=== PATIENT | female | born 1960 | race Caucasian/White ===

== ENCOUNTER 2018-11-09 16:16 | Inpatient (IN) | payer OTHER ==
--- NOTE | 2018-11-09 16:32 | EDPHY ---
H & P Stated Complaint: developed chset pain and headache status post nasal debridment Time Seen by Provider: 11/09/18 16:31 HPI/ROS: CHIEF COMPLAINT: Chest pain following nasal debridement in the ENT office HISTORY OF PRESENT ILLNESS: The patient was undergoing a mild nasal debridement in the ENT office. She did received some nasal anesthetic. She tolerated the procedure well was discharged home. Shortly after leaving the office she developed chest pain, headache and dizziness. She return to the office. Her headache resolved however she continued to have anterior chest pain and dizziness which prompted her visit to the emergency department today. The patient denies any focal numbness or weakness. She has no history of cardiac disease. She has been on Suprax for the past 7 weeks secondary to her sinus infection. The patient does take propranolol for tremors. She denies any asymmetric calf pain or swelling. She denies pleuritic chest pain. REVIEW OF SYSTEMS: A comprehensive 10 point review of systems is otherwise negative aside from elements mentioned in the history of present illness. Source: Patient Exam Limitations: No limitations - Personal History Current Tetanus Diphtheria and Acellular Pertussis (TDAP): Yes - Medical/Surgical History Hx Asthma: Yes Hx Chronic Respiratory Disease: No Hx Diabetes: No Hx Cardiac Disease: No Hx Renal Disease: No Hx Cirrhosis: No Hx Alcoholism: No Hx HIV/AIDS: No Hx Splenectomy or Spleen Trauma: No Other PMH: hypothyroid, raynauds, tremors, Chronic sinusitis - Social History Smoking Status: Never smoked - Physical Exam Exam: General Appearance: Alert, no distress Eyes: Pupils equal and round no pallor or injection ENT, Mouth: Mucous membranes moist Respiratory: There are no retractions, lungs are clear to auscultation Cardiovascular: Regular rate and rhythm Gastrointestinal: Abdomen is soft and nontender, no masses, bowel sounds normal Neurological: A&O, normal motor function, normal sensory exam, normal cranial nerves Skin: Warm and dry, no rashes Musculoskeletal: Neck is supple nontender Extremities: symmetrical, full range of motion Constitutional: Initial Vital Signs Heart Rate 57 L 11/09/18 16:18 Respiratory Rate 16 11/09/18 16:18 Blood Pressure 142/77 H 11/09/18 16:18 O2 Sat (%) 100 11/09/18 16:18 O2 Delivery Mode Room Air Allergies/Adverse Reactions: alcohol Allergy (Verified 11/09/18 16:22) Home Medications: Medication Instructions Recorded Levothyroxine 11/09/18 Propranolol HCl 11/09/18 Suprax 11/09/18 Medical Decision Making - Diagnostics EKG Interpretation: EKG: Complete interpretation has been separately recorded in the [employer] archive. Summary impression: Sinus rhythm, rate 50, no ischemic changes or arrhythmia noted Repeat EKG in the setting of positive troponin performed at 7:00 p.m. EKG: Complete interpretation has been separately recorded in the [employer] archive. Summary impression: Sinus rhythm, no evidence of ischemia Imaging Results: Chest x-ray AP: Images reviewed by myself and discussed with radiologist Dr. Garcia. Impression negative for acute disease. ED Course/Re-evaluation: Patient presents to the ED with lightheadedness and chest pain following a simple office base procedure in the ENT office. The patient is neurologically intact upon arrival. She has no complaints of significant headache currently. Her initial EKG demonstrates no evidence of ischemia. Patient is noted to have an indeterminately elevated troponin of 0.28. I re- evaluated the patient at 5:45 p.m. and she is chest pain-free. Patient's troponin was rechecked at 7:00 p.m. and found to be positive at 5.1. Repeat EKG was ordered. The patient continues to have no symptoms. Discussion: The patient presents the ED after an episode of chest pain and headache which began some time after receiving fell Afrin at the ENT physician' s office. The patient has no risk factors for coronary artery disease. The patient did receive an aspirin in the emergency department.. Consultation was made with Dr. Ríos from Cardiology who reviewed the patient's EKGs. Working diagnosis at this point time is likely vaso spasm from phenylephrine. The patient will be given 1 milligram/kilogram of Lovenox. The patient will be admitted to the hospital. She should be NPO after midnight in anticipation of cardiac catheterization tomorrow. Consultation is made with Dr. Menendez from the hospitalist service who will admit the patient this evening. Differential Diagnosis: Differential diagnosis considered includes acute coronary syndrome, myocardial infarction, pericarditis, arrhythmia Critical Care Time: Critical care time exclusive of procedures and exclusive of the PA's time was 35 minutes, performed by myself, Pedro Chambers MD. Patient presents to the ED after an episode of fairly severe chest pain after a fentanyl Afrin nasal infusion. The patient was noted to rule in for myocardial infarction with a troponin of 5 at 7:00 p.m.. The patient was started on Lovenox. I consulted with Cardiology. The patient will be admitted to the hospital this evening in anticipation of cardiac catheterization in the morning. - Data Points Laboratory Results: Laboratory Results 11/09/18 16:40 11/09/18 16:40 11/09/18 11/09/18 11/09/18 19:04 17:24 16:40 WBC RBC Hgb Hct MCV MCH MCHC RDW Plt Count MPV Neut % (Auto) Lymph % (Auto) [place] % (Auto) Eos % (Auto) Baso % (Auto) Nucleat RBC Rel Count Absolute Neuts (auto) Absolute Lymphs (auto) Absolute Monos (auto) Absolute Eos (auto) Absolute Basos (auto) Absolute Nucleated RBC Immature Gran % Immature Gran # Sodium 137 mEq/L mEq/L (135-145) Potassium 3.8 mEq/L mEq/L (3.5-5.2) Chloride 101 mEq/L mEq/L (97-110) Carbon Dioxide 25 mEq/l mEq/l (22-31) Anion Gap 11 mEq/L mEq/L (6-14) BUN 25 mg/dL H mg/dL (7-23) Creatinine 0.9 mg/dL mg/dL (0.6-1.0) Estimated GFR > 60 Glucose 126 mg/dL H mg/dL (70-100) Calcium 10.4 mg/dL mg/dL (8.5-10.4) POC Troponin I 5.10 ng/mL H ng/mL 0.28 ng/mL H ng/mL (0.00-0.08) (0.00-0.08) 11/09/18 16:40 WBC 6.22 10^3/uL 10^3/uL (3.80-9.50) RBC 4.50 10^6/uL 10^6/uL (4.18-5.33) Hgb 14.3 g/dL g/dL (12.6-16.3) Hct 43.2 % % (38.0-47.0) MCV 96.0 fL fL (81.5-99.8) MCH 31.8 pg pg (27.9-34.1) MCHC 33.1 g/dL g/dL (32.4-36.7) RDW 13.1 % % (11.5-15.2) Plt Count 240 10^3/uL 10^3/uL (150-400) MPV 9.3 fL fL (8.7-11.7) Neut % (Auto) 51.4 % % (39.3-74.2) Lymph % (Auto) 34.4 % % (15.0-45.0) [place] % (Auto) 10.9 % % (4.5-13.0) Eos % (Auto) 2.6 % % (0.6-7.6) Baso % (Auto) 0.5 % % (0.3-1.7) Nucleat RBC Rel Count 0.0 % % (0.0-0.2) Absolute Neuts (auto) 3.20 10^3/uL 10^3/uL (1.70-6.50) Absolute Lymphs (auto) 2.14 10^3/uL 10^3/uL (1.00-3.00) Absolute Monos (auto) 0.68 10^3/uL 10^3/uL (0.30-0.80) Absolute Eos (auto) 0.16 10^3/uL 10^3/uL (0.03-0.40) Absolute Basos (auto) 0.03 10^3/uL 10^3/uL (0.02-0.10) Absolute Nucleated RBC 0.00 10^3/uL 10^3/uL (0-0.01) Immature Gran % 0.2 % % (0.0-1.1) Immature Gran # 0.01 10^3/uL 10^3/uL (0.00-0.10) Sodium Potassium Chloride Carbon Dioxide Anion Gap BUN Creatinine Estimated GFR Glucose Calcium POC Troponin I Medications Given: Discontinued Medications Aspirin (Aspirin) 324 mg PO EDNOW ONE Stop: 11/09/18 17:43 Last Admin: 11/09/18 17:47 Dose: 324 mg Sodium Chloride (Ns) 1,000 mls @ 0 mls/hr IV EDNOW ONE; Wide Open PRN Reason: Protocol Stop: 11/09/18 16:50 Last Admin: 11/09/18 17:09 Dose: 1,000 mls Point of Care Test Results: Chemistry 11/09/18 11/09/18 19:04 17:24 POC Troponin I 5.10 ng/mL H ng/mL 0.28 ng/mL H ng/mL (0.00-0.08) (0.00-0.08) Departure - Departure Disposition: [facility] Inpatient Acute Clinical Impression: NSTEMI (non-ST elevated myocardial infarction) Condition: Fair
[2018-11-09] MEDS ORDERED: NS 1,000 ML IV ONE (16:49)
--- NOTE | 2018-11-09 16:53 | CPEKG ---
Test Reason : OPEN Blood Pressure : / mmHG Vent. Rate : 050 BPM Atrial Rate : 050 BPM P-R Int : 162 ms QRS Dur : 091 ms QT Int : 441 ms P-R-T Axes : 072 031 053 degrees QTc Int : 403 ms Sinus rhythm Confirmed by Pedro Chambers ([id number]) on 11/09/2018 4:52:29 PM Referred By: Pedro Chambers Confirmed By:Pedor Chambers
[2018-11-09 16:56] LABS: PLATELET COUNT 240 10^3/uL (150-400)
[2018-11-09] MEDS ORDERED: ASPIRIN 81 MG CHEWABLE TAB PO ONE (17:42)
[2018-11-09] MEDS ORDERED: ENOXAPARIN 60 MG/0.6 ML SYR SC ONE (19:35)
--- NOTE | 2018-11-09 19:38 | CPEKG ---
Test Reason : OPEN Blood Pressure : / mmHG Vent. Rate : 085 BPM Atrial Rate : 084 BPM P-R Int : 161 ms QRS Dur : 092 ms QT Int : 388 ms P-R-T Axes : 074 034 054 degrees QTc Int : 462 ms Sinus rhythm Confirmed by Pedro Chambers ([id number]) on 11/09/2018 7:37:24 PM Referred By: Pedro Chambers Confirmed By:Pedro Chambers
[2018-11-09] MEDS ORDERED: ONDANSETRON 4 MG/2 ML VIAL IVP PRN (20:45)
[2018-11-09] MEDS ORDERED: CEFIXIME 400 MG PO SCH (20:45)
[2018-11-09] MEDS ORDERED: ONDANSETRON DISINTEGRATING 4 MG TAB PO PRN (20:45)
[2018-11-09] MEDS ORDERED: ACETAMINOPHEN 325 MG TAB PO PRN (20:45)
--- NOTE | 2018-11-09 21:06 | PDGENHP ---
History and Physical - Chief Complaint Chest pain - History of Present Illness 57 y/o female presents to the ED w/c/o severe RODRIGUEZ, anterior sternal CP and dizziness s/p a nasal procedure that was performed today by Dr. Choi's office. She has a hx of complicated chronic maxillary sinusitis w/right maxillary abscess that she ended up having surgery (maxillary antrostomy) on last year; had improvement until recently where the sinus pressures started to build up; followed by [facility] and has been on Suprax (and has been on for 7 weeks), had a nasal endoscopy performed in September 2018 w/use of lidocaine/phenylephrine - no signs of infection. Today was a f/u appt to which nasal medications were used and she reports Dr. Choi nasally "suctioned junk" out. Afterwards, she felt fine and left. However, soon after leaving she experienced a severe RODRIGUEZ and drove herself to the office where she developed anterior sternal CP and dizziness. No cardiac hx. Since that time, she is asymptomatic however does have elevated troponins of 0.28 and 5.10, NSR on EKG. She is being admitted for further work-up, treatment and monitoring. History Information - Allergies/Home Medication List Allergies/Adverse Reactions: alcohol Allergy (Verified 11/09/18 16:22) Home Medications: Cefixime [Suprax] 400 mg PO DAILY 11/09/18 [Last Taken 11/08/18] Levothyroxine [Synthroid 88 mcg (*)] 88 mcg PO DAILY06 11/09/18 [Last Taken ] Propranolol HCl [Propranolol HCl ER] 60 mg PO DAILY 11/09/18 [Last Taken ] I have personally reviewed and updated: family history, medical history, social history, surgical history Past Medical History: Hypothyroid, Raynauds, Essential tremors, Chronic sinusitis - Surgical History Reports: appendectomy Additional surgical history: Vaginectomy, labral tear should repair, noted nasal procedures in HPI - Family History Positive for: non-pertinent - Social History Smoking Status: Never smoked Alcohol Use: None Drug Use: None 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 Case discussed w/admitting physician, Dr. Guera Menendez. WBC: 6.22 H/H: 14.3/43.2 Plt count: 240 Na: 137 K: 3.8 Cl: 101 Co2: 25 BUN/Cr: 25/0.9 Troponin: 0.28/5.10 CXR: No acute cardiopulmonary processes EKG: NSR Temp Pulse Resp BP Pulse Ox 36.8 C 79 18 115/76 97 11/09/18 20:04 11/09/18 20:04 11/09/18 20:04 11/09/18 20:04 11/09/18 20:04 Constitutional: no apparent distress, appears nourished, not in pain Eyes: PERRL, anicteric sclera, EOMI Ears, Nose, Mouth, Throat: moist mucous membranes, hearing normal, ears appear normal, no oral mucosal ulcers Cardiovascular: regular rate and rhythym, no murmur, rub, or gallop, No edema Peripheral Pulses: 2+: dorsalis-pedis (R), dorsalis-pedis (L) Respiratory: no respiratory distress, no rales or rhonchi, clear to auscultation Gastrointestinal: normoactive bowel sounds, soft, non-tender abdomen, no palpable masses Genitourinary: no bladder fullness, no bladder tenderness Skin: warm, normal color, no rashes or abrasions, no fluctuance, no induration, No mottled Musculoskeletal: full muscle strength, no muscle tenderness, normal joint ROM, no joint effusions Neurologic: AAOx3, sensation intact bilaterally, CN II-XII Intact Psychiatric: interacting appropriately, not anxious, not encephalopathic, thought process linear Lymph, Heme, Immunologic: no cervical LAD, no supraclavicular LAD Lab Data & Imaging Review 11/09/18 16:40 11/09/18 16:40 WBC 6.22 10^3/uL (3.80-9.50) 11/09/18 16:40 RBC 4.50 10^6/uL (4.18-5.33) 11/09/18 16:40 Hgb 14.3 g/dL (12.6-16.3) 11/09/18 16:40 Hct 43.2 % (38.0-47.0) 11/09/18 16:40 MCV 96.0 fL (81.5-99.8) 11/09/18 16:40 MCH 31.8 pg (27.9-34.1) 11/09/18 16:40 MCHC 33.1 g/dL (32.4-36.7) 11/09/18 16:40 RDW 13.1 % (11.5-15.2) 11/09/18 16:40 Plt Count 240 10^3/uL (150-400) 11/09/18 16:40 MPV 9.3 fL (8.7-11.7) 11/09/18 16:40 Neut % (Auto) 51.4 % (39.3-74.2) 11/09/18 16:40 Lymph % (Auto) 34.4 % (15.0-45.0) 11/09/18 16:40 [place] % (Auto) 10.9 % (4.5-13.0) 11/09/18 16:40 Eos % (Auto) 2.6 % (0.6-7.6) 11/09/18 16:40 Baso % (Auto) 0.5 % (0.3-1.7) 11/09/18 16:40 Nucleat RBC Rel Count 0.0 % (0.0-0.2) 11/09/18 16:40 Absolute Neuts (auto) 3.20 10^3/uL (1.70-6.50) 11/09/18 16:40 Absolute Lymphs (auto) 2.14 10^3/uL (1.00-3.00) 11/09/18 16:40 Absolute Monos (auto) 0.68 10^3/uL (0.30-0.80) 11/09/18 16:40 Absolute Eos (auto) 0.16 10^3/uL (0.03-0.40) 11/09/18 16:40 Absolute Basos (auto) 0.03 10^3/uL (0.02-0.10) 11/09/18 16:40 Absolute Nucleated RBC 0.00 10^3/uL (0-0.01) 11/09/18 16:40 Immature Gran % 0.2 % (0.0-1.1) 11/09/18 16:40 Immature Gran # 0.01 10^3/uL (0.00-0.10) 11/09/18 16:40 Sodium 137 mEq/L (135-145) 11/09/18 16:40 Potassium 3.8 mEq/L (3.5-5.2) 11/09/18 16:40 Chloride 101 mEq/L (97-110) 11/09/18 16:40 Carbon Dioxide 25 mEq/l (22-31) 11/09/18 16:40 Anion Gap 11 mEq/L (6-14) 11/09/18 16:40 BUN 25 mg/dL (7-23) H 11/09/18 16:40 Creatinine 0.9 mg/dL (0.6-1.0) 11/09/18 16:40 Estimated GFR > 60 11/09/18 16:40 Glucose 126 mg/dL (70-100) H 11/09/18 16:40 Calcium 10.4 mg/dL (8.5-10.4) 11/09/18 16:40 POC Troponin I 5.10 ng/mL (0.00-0.08) H 11/09/18 19:04 Assessment & Plan Assessment: 57 y/o female w/chronic sinusitis s/p nasal procedure today presents w/acute onset of severe RODRIGUEZ, CP and dizziness. Symptoms since then have resolved. No cardiac hx, no family hx of cardiac. Vital signs are the following: BP 109/64, HR 81, Resp 17, Temp 36.5c, 99% RA #NSTEMI (non-ST elevated myocardial infarction) (Acute) -Cards consulted. Dr. Chambers spoke w/Dr. Ríos; working diagnosis at this point is likely vasospasm from phenylephrine -NPO at midnight tonight in anticipation for cardiac catheterization in AM -Cycle trops Q6H x 2 -Cont tele/PCU monitoring -EKG PRN if symptomatic -Lipid panel/creatinine in AM -Cont BB (used for tremors) -Received Lovenox subq 1mg/kg in ED #Chronic sinusitis -Afebrile, no leukocytosis -Takes Suprax and has for 7 weeks. She does not have medication w/her and it is non-formulary. Will hold giving abx for the time being #Hypothyroidism -Cont L4T Diet: Regular, NPO at midnight tonight VTE ppx: SCDs Code: Full Dispo: Admit to inpatient
[2018-11-10] MEDS: LEVOTHYROXINE 88 MCG TAB PO SCH ×2 (05:24→06:29)
[2018-11-10] MEDS ORDERED: ASPIRIN 81 MG CHEWABLE TAB PO SCH (09:00)
[2018-11-10] MEDS ORDERED: PROPRANOLOL SR 60 MG CAP PO SCH (09:00)
--- NOTE | 2018-11-10 09:18 | PDMN ---
Medical Necessity Medical necessity: Pt meets inpt criteria per MD order and MCG [id number], Myocardial Infarction, 2 days, inpt adm indicated for: myocardial injury due to acute ischemia as indicated by: symptoms consistent with myocardial ischemia- pt presented w/chest pain/dizziness and by elevated troponins x 4. Cardiology consult, will have LHC this AM. 57 y/o s/p nasal procedure snet form ENT's office presenting w/ acute onset of severe RODRIGUEZ, cp, and dizziness, admitted w/ NSTEMI, est LOS>2MN for ongoing eval/management.
--- NOTE | 2018-11-10 09:25 | HOSPPROG ---
Hospitalist Progress Note Assessment/Plan: 57yo F with chronic sinus s/p nasal procedure yesterday p/w acute onset RODRIGUEZ and chest pain found to have elevated troponin. No cardiovascular risk factors. #NSTEMI: Trop peak 5. No ischemic ECG changes. Now CP free. Suspect coronary vasospasm in setting of phenylephrine but prudent to rule out plaque rupture/CAD , dissection. - Cards consulted - TTE pending - ASA 81mg daily - Plan for [facility] today #Chronic sinusitis: Dr Kent wanted patient to continue Suprax for 3 more days. Patient does not tolerate without food so will hold until after procedure. Additionally, this is non-formulary. If patient stays overnight, will ask her to bring in from home. #Hypothyroidism: Continue levothyroxine. Diet: NPO until procedure Code: full Dispo: pending cath Subjective: Chest pain free since arrival. Rare isolated PVC on tele. Objective: Vital Signs Temp Pulse Resp BP Pulse Ox 36.5 C 63 15 96/61 L 94 11/10/18 04:00 11/10/18 04:00 11/10/18 04:00 11/10/18 04:00 11/10/18 04:00 Laboratory Results 11/10/18 07:09 11/09/18 11/10/18 11/11/18 05:59 05:59 05:59 Intake Total 1200 Balance 1200 - Physical Exam Constitutional: no apparent distress, appears nourished, not in pain Eyes: PERRL, anicteric sclera, EOMI Ears, Nose, Mouth, Throat: moist mucous membranes, hearing normal, ears appear normal, no oral mucosal ulcers Cardiovascular: regular rate and rhythym, no murmur, rub, or gallop, No edema Respiratory: no respiratory distress, no rales or rhonchi, clear to auscultation Gastrointestinal: normoactive bowel sounds, soft, non-tender abdomen, no palpable masses Genitourinary: no bladder fullness, no bladder tenderness, no renal bruits Skin: no rashes or abrasions, no fluctuance, no induration Musculoskeletal: full muscle strength, no muscle tenderness, normal joint ROM Neurologic: AAOx3, sensation intact bilaterally Psychiatric: interacting appropriately, not anxious, not encephalopathic, thought process linear ICD10 Worksheet Patient Problems: Problems Problem Status Onset NSTEMI (non-ST elevated myocardial infarction) Acute
[2018-11-10] MEDS ORDERED: LEVOTHYROXINE 50 MCG TAB PO SCH (09:30)
[2018-11-10 10:04] LABS: INR 1.05 (0.83-1.16); PROTIME(PATIENT) 13.3 SEC (12.0-15.0)
--- NOTE | 2018-11-10 10:19 | PDPROPOC ---
Sedation Plan of Care Sedation Plan of Care: vital signs stable, mental status noted, patient educated of risks, benefits, alternatives, patient can tolerate sedation ASA Classification: ASA 2 Planned drugs: fentanyl, midazolam Mallampati Score: Class 2 Mallampati Reference Image: Patient passed 3-3-2 rule?: Yes
--- NOTE | 2018-11-10 10:19 | PDHPUP ---
History & Physical Update H&P update statement: This history and physical update is based on an assessment of the patient which was completed after admission or registration (within 24 hours), but prior to the surgery/procedure. H&P update: H&P reviewed & patient examined, no change in patient's condition since H&P completed
--- NOTE | 2018-11-10 10:56 | GCON ---
[f rep st] CONSULTATION CARDIOLOGY CONSULT DATE OF CONSULTATION: 11/10/2018 CHIEF COMPLAINT: Non ST elevation SC. HISTORY OF PRESENT ILLNESS: We were asked by Dr. Beasley to visit with this patient. 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 She also has no cardiac ri sk factors. Over the past several months, she has had ongoing problems with a chronic right maxillar y sinus infection. She has been on long-term antibiotics and has had a surgery as well as some other ENT procedures. Yesterday, she was at Dr. Kent's office for another sinus procedure. She rece ived intranasal phenylephrine and lidocaine. I am not sure if the lidocaine contained epinephrine. Shortly after leaving the ENT office, she had a severe headache, which caused her to go back to the o ffice. Then she started to experience chest pain, so was sent to the ER. Her headache subsided. He r chest pain lasted for approximately 15 minutes. Her initial troponin was minimally elevated, but t hen a repeat troponin was 5. Her EKG did not show acute ischemic changes. She was admitted for the dimock centert her evaluation and management. Overnight, she has not had recurrent chest pain. She denies any preceding history of chest pain or s hortness of breath. The only time she has ever had palpitations was when she was taking generic levo thyroxine. No history of syncope. No lower extremity edema, paroxysmal nocturnal dyspnea, orthopnea . She exercises regularly without limitation. REVIEW OF SYSTEMS: A full 10-point review of systems is performed. Notable for that which is outline d above. Furthermore, she has had frequent diarrhea related to her chronic antibiotic therapy. The antibiotic is Suprax. Otherwise, a full 10-point review of systems is negative. ALLERGIES: Phenylephrine. Alcohol. PAST MEDICAL HISTORY: 1. Hypothyroidism. 2. Chronic sinusitis. 3. Essential tremor for which she takes daily propranolol. She sees Dr. Austin Morales of Neurology. OUTPATIENT MEDICATIONS: Propranolol ER 60 mg daily, levothyroxine 50 mcg daily, and Suprax 400 mg da jose armando. 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 She has not smoke cigarett es. She is allergic to alcohol and therefore does not drink alcohol. FAMILY HISTORY: Negative for premature coronary disease. PHYSICAL EXAM: VITAL SIGNS: Blood pressure 116/71, heart rate 61, oxygen saturation 95% on room air she is afebrile. TELEMETRY: Sinus rhythm with occasional PVCs. GENERAL: A well-appearing middle-ag ed female in no acute distress. HEENT: Sclerae clear. No jaundice. Mucous membranes are moist. N ormocephalic, atraumatic. She does have very subtle right facial swelling without facial droop. CARDI OVASCULAR: JVP is less than 10. Carotids equal and 2+ bilaterally without bruit. Regular rate and rhythm without murmur, rub or gallop. LUNGS: Clear to auscultation without wheezes, rhonchi, or ral es. ABDOMEN: Soft, nontender, nondistended, without bruits, masses, hepatosplenomegaly. EXTREMITIE S: Warm and well perfused without cyanosis, clubbing, or edema. She is alert. NEURO: Alert, orien felton x3 without gross focal neurologic deficits. Appropriate mood and affect. LABORATORY DATA: CBC is normal. INR 1.05. Basic metabolic panel is normal except for a glucose of 126 and a BUN of 25. Her peak troponin was 5. This morning is 1.9. Total cholesterol 147. LDL 84. EKG x2 reviewed by me shows sinus rhythm without ischemic changes. Chest x-ray reviewed by me: No acute cardiopulmonary process. Echocardiogram is pending. ASSESSMENT AND PLAN: 57-year-old female with no previous cardiac history and no known cardiac risk f actors. She presents with acute chest pain and headache after intranasal phenylephrine. Repeat trop onin is 5. She is now chest pain-free. Etiology is likely coronary vasospasm in the setting of a po tent vasoconstrictor. 1. Non ST elevation myocardial infarction: She is chest pain-free. We will review echocardiogram. Blood pressure is well controlled. She received Lovenox in the ER last night and aspirin therapy as well. I discussed the option of performing coronary angiography. Even though her event was likely caused by coronary vasospasm, I do think it would be prudent to look directly at her coronary arterie s to make sure she does not have a thrombus, coronary atherosclerosis, or dissection. Risks, benefit s, and alternatives were discussed and she agrees to proceed. This will be scheduled for today. 2. Chronic sinusitis: She is on long-term Suprax therapy per ENT. 3. Essential tremor: She will continue her home dose of propanolol which is also appropriate from a cardiac standpoint. Thank you for allowing us to participate in the patient's care. We will follow with you. /[id number]/MODL
--- NOTE | 2018-11-10 11:31 | ECHO ---
[email or web address] [address] Main: [phone] Echocardiography Examination Transthoracic Name: JAMSHID GARCIA MR#: Study Date: 11/10/2018 Study Time: 08:25 AM Date of : 1960 Age: 57 year(s) Height: 160 cm (63 in.) Weight: 65.77 kg (145 lb.) BSA: 1.69 m2 Gender: Female Examination: Echo Contrast: Image Quality: Rhythm: Normal sinus rhythm Heart Rate: 65 bpm BP: 96 mmHg/61 mmHg Indication: Elevated Troponins post procedure Procedure Staff Referring Physician: Ironing Machine Operator: Gamaliel Camp RDCS Reading Physician: Faviola Marquis MD Requesting Provider: Ordering Physician: Guera Menendez Indication: Elevated Troponins post procedure Measurements Chambers AV/MV Label Value Normal Value Label Value Normal Value LVOT Vmax 0.81 m/s (0.7m/s - 1.1m/s) AV PGmax 6 mmHg LVOTd 1.9 cm (1.8cm - 2cm) AV PGmean 3 mmHg LVOT VTI 19.2 cm (18cm - 22cm) AV Vmax 1.18 m/s LVDd, 2D 3.8 cm (3.9cm - 5.3cm) LEIDA (Vmax) 1.9 cm2 LVDs, 2D 2.3 cm (2.1cm - 4cm) LEIDA (VTI) 2 cm2 IVSd, 2D 0.7 cm (0.6cm - 1.1cm) MV E Vmax 0.68 m/s LVPWd, 2D 0.8 cm MV A Vmax 0.77 m/s LVEF, 2D 70 % (54% - 74%) MV E/A 0.88 LVOT PGmean 1 mmHg MV E/E' lateral 7.8 LVOT Vmean 0.52 m/s MV E/E' septal 7.6 (0.5 - 1.7) Additional Vessels MV E' septal 0.09 m/s Label Value Normal Value MV E' lateral 0.09 m/s AoRoot, MM 2.6 cm (2.2cm - 3.7cm) MV E/E' mean 7.56 MV E' mean 0.09 m/s TV/PV Label Value Normal Value RA Pressure 5 mmHg RVSP 25 mmHg TR Pmax 20 mmHg Patient: JAMSHID GARCIA MRN: Study Date: 11/10/2018 Page 1 of 3 08:25 AM TR Vmax 2.23 m/s PV PGmax 2 mmHg PV Vmax, Caliper 0.66 m/s (0.6m/s - 0.9m/s) Conclusions 1. The left ventricle is normal in size and systolic function. Normal wall thickness. No regional wall motion abnormalities. 2. The right ventricle is normal in size and systolic function. 3. There is no significant valvular disease. 4. Estimated PA systolic pressure is normal. 5. No pericardial effusion. 6. No previous echo Findings Left Ventricle: Left ventricle is normal in size. Normal global systolic left ventricular function. Left ventricle wall thickness is normal. There are no regional wall motion abnormalities. Left ventricular diastolic function parameters are normal. IVS: The septum is intact. Right Ventricle: Normal size right ventricle. Right ventricular systolic function is normal. Left Atrium: The left atrium is normal in size. IAS: Normal appearing atrial septum. Right Atrium: The right atrium is normal in size. Mitral Valve: Mitral valve is normal in appearance. Trivial mitral regurgitation. No mitral valve stenosis. Aortic Valve: Aortic leaflets exhibit normal cuspal separation. No aortic valve regurgitation. There is no aortic stenosis. Tricuspid Valve: Tricuspid valve leaflets are normal in appearance and function. Trivial tricuspid regurgitation. No tricuspid valve stenosis. Right Ventricular systolic pressure is measured at 25 mmHg. Pulmonary artery pressure normal. Pulmonic Valve: Pulmonic leaflets exhibit normal cuspal separation. No pulmonic valve regurgitation is evident. There is no pulmonic valve stenosis. Aorta: The aorta is normal. The aortic root size in M-mode measures 2.6 cm. Aorta Measurements AoRoot, MM is 2.6 cm. Pulmonary Artery: The pulmonary artery morphology appears normal. IVC: The inferior vena cava is normal in size and course. Pericardium: No pericardial effusion. No pleural effusion present. Exam Details Procedure Ordered: Echo Patient: JAMSHID GARCIA MRN: Study Date: 11/10/2018 Page 2 of 3 08:25 AM (No Signature Object) Patient: JAMSHID GARCIA MRN: Study Date: 11/10/2018 Page 3 of 3 08:25 AM [id number]
[2018-11-10] MEDS ORDERED: TEMAZEPAM 15 MG CAP PO PRN (12:52)
[2018-11-10] MEDS ORDERED: NITROGLYCERIN 0.4 MG BTL SL PRN (12:52)
[2018-11-10] MEDS ORDERED: NS 1,000 ML IV SCH (13:00)
[2018-11-10] MEDS ORDERED: MIDAZOLAM 2 MG/2 ML VIAL ONE (13:13)
[2018-11-10] MEDS ORDERED: fentaNYL 100 MCG/2 ML INJ ONE (13:13)
[2018-11-10] MEDS ORDERED: LIDOCAINE 1% 300 MG/30 ML SDV ONE (13:13)
[2018-11-10] MEDS ORDERED: IOPAMIDOL (ISOVUE 370) 100 ML BTL IV ONE (13:14)
[2018-11-10] MEDS ORDERED: FAMOTIDINE 20 MG TAB ONE (13:29)
[2018-11-10] MEDS ORDERED: ASPIRIN EC 325 MG TAB PO ONE (13:29)
[2018-11-10] MEDS ORDERED: diphenhydrAMINE 25 MG CAP PO ONE (13:29)
[2018-11-10] MEDS ORDERED: DIAZEPAM 5 MG TAB ONE (13:30)
[2018-11-10] MEDS ORDERED: ATROPINE SULFATE 1 MG/10 ML SYR IVP PRN (14:24)
--- NOTE | 2018-11-10 15:07 | ASMTCMCOM ---
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 Discussed w/RN, reviewed chart. There are no identified case management d/c needs d/t pt age, marital status, employment status and independence with ADL's prior to admission. There are no therapy evals ordered today. Dr. Yepez is PCP. Case Management d/c poc: independent with follow up as directed. Case Management available if needs change. Date Signed: 11/10/2018 03:06 PM Electronically Signed By:Yvonne Muhammad RN
--- NOTE | 2018-11-10 16:11 | PDDCSUM ---
Discharge Summary Discharge Summary: Date of Admission: 11/09/2018 Date of Discharge: 11/10/2018 Consultants: cardiology Procedures: coronary angiography Studies: TTE Discharge Diagnoses: 1. Non-ST elevation MD secondary to coronary vasospasm 2. Chronic sinusitis on chronic antibiotics 3. Essential tremor 4. Hypothyroidism Brief Hospital Course: 57yo F with chronic sinusitis who underwent sinus wash-out at her ENT office on day of admission presented with acute onset headache and chest pain. She received intra-nasal phenylephrine and lidocaine for the procedure and shortly thereafter developed the aforementioned symptoms. She was brought to the ED where her troponin peaked at 5. She did not have any ischemic or dynamic ECG changes. An echocardiogram was normal. Cardiology was consulted and she underwent coronary angiography which was also normal. Her symptoms and elevated troponin were thus attributed to coronary vasospasm in setting of intra-nasal phenylephrine use. I put phenylephrine on her "adverse reaction" medication list. She was started on aspirin 81mg daily and will follow up with cardiology next week. Medications: Please refer to EMR for complete list. Only change was addition of aspirin 81mg daily. Follow Up Plan: Visit with Marla Oleary in 1 week.
--- NOTE | 2018-11-10 16:16 | PDDXCAT ---
Diagnostic Cath Note - . 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 There is no significant disease in the LAD or diagonals. There is no evidence of dissection or atherosclerotic plaque. No thrombus LCX: The left circ as 1 large obtuse marginal branch. There is no coronary disease in the left circumflex or the obtuse marginal RCA: This is a dominant vessel. Normal. EDP: 22 LVEF: Left ventriculography was not performed as the patient had a normal echocardiogram earlier the same day - Findings-Right Heart Catheterization AO: 112/57. No aortic stenosis Complications: None Estimated blood loss: <50ml Closure method: Angioseal Assessment: Angiographically normal coronary arteries. Presumed coronary vasospasm caused by intranasal phenylephrine causing small non ST-elevation MS. Plan: Stable for discharge after bedrest protocol complete. Continue low-dose aspirin Follow-up [facility] in 1 week for groin check Patient Problems: Problems Problem Status Onset NSTEMI (non-ST elevated myocardial infarction) Acute
--- NOTE | 2018-11-10 17:17 | ASDISCHSUM ---
Discharge Information Plan Status:Home with No Needs Medically Cleared to Leave:11/10/2018 Discharge Date:11/10/2018 CM D/C Disposition:Home, Routine, Self-Care ADT D/C Disposition:Home, Routine, Self-Care Projected Discharge Date:11/10/2018 Transportation at D/C:Family Discharge Delay Reason: Follow-Up Date:11/10/2018 Discharge Slot: Final Diagnosis:NSTEMI Placement Information Patient Contact Information Contact Name:ROMAN Relationship:Juliana Address: City: [facility] Phone: State/Zip Code: Email: Financial Information Financial Class:HMO and PPO Plans Primary Plan Desc:[email or web address] Primary Plan Number:[id number] Secondary Plan Desc: Secondary Plan Number: Assessment Information LACE LACE Length of stay for Answers: Less than 1 day current admission Acuity / Level of Answers: Yes Care: Did the patient have an inpatient admission? Comorbidities - select Answers: Other Notes: Hypothyroid; Essential all that apply tremor # of Emergency department Answers: 1-2 visits in the last 6 months Score: 5 Date Signed: 11/10/2018 05:16 PM Electronically Signed By:Milagro Woods 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 Discussed w/RN, reviewed chart. There are no identified case management d/c needs d/t pt age, marital status, employment status and independence with ADL's prior to admission. There are no therapy evals ordered today. Dr. Yepez is PCP. Case Management d/c poc: independent with follow up as directed. Case Management available if needs change. Date Signed: 11/10/2018 03:06 PM Electronically Signed By:Yvonne Muhammad RN Case Management Discharge Plan Note Case Management Discharge Discharge Order Complete? Answers: Yes Patient to Obtain Answers: via Family Medications Transportation Arranged Answers: Family/Friends Transport will Pick (Date 11/10/2018 12:00 AM & Time) Family Notified Answers: Yes Notes: by pt Discharge Comments Notes: Pt to discharge independently. No CM needs identified at this time. CM available should needs change. Date Signed: 11/10/2018 05:15 PM Electronically Signed By:Milagro Woods Intervention Information
[2018-11-10 17:20] VITALS: BP 126/74
[2018-11-11] MEDS ORDERED: DIAZEPAM 5 MG TAB PO ONE (06:00)
[2018-11-11] MEDS ORDERED: FAMOTIDINE 20 MG TAB PO ONE (06:00)
[2018-11-11] MEDS ORDERED: diphenhydrAMINE 25 MG CAP PO ONE (06:00)
== END 2018-11-10 18:34 | disposition home or self-care (01) | DRG 282 ==
LOC: F2W 21:15
PROVIDERS: ADMIT Internal Medicine; ATTEND Internal Medicine
DX: I21.4 Non-ST elevation (NSTEMI) myocardial infarction (principal); I20.1 Angina pectoris with documented spasm; E03.9 Hypothyroidism, unspecified; I73.00 Raynaud's syndrome without gangrene; J32.9 Chronic sinusitis, unspecified; Z79.2 Long term (current) use of antibiotics; G25.0 Essential tremor
CPT/HCPCS: 84484-ER; C1760; J1644; J1650; J2250; J3010; Q9967